=== PATIENT | female | born 1970 | race African-American/Black ===

== ENCOUNTER 2017-01-28 10:56 | Emergency (ER) | payer MEDICAID ==
[~2017-01-28] VITALS: Ht 149.9 cm; Wt 60.0 kg
[~2017-01-28 10:56] MED LIST: naprosyn; vicodin
[2017-01-28] MEDS ORDERED: MORPHINE SULFATE 10 MG/ML CPJ IM ONE ×2 (14:15→17:15)
[2017-01-28] MEDS ORDERED: ONDANSETRON 4MG ODT PO ONE (14:15)
[2017-01-28] MEDS ORDERED: AMLODIPINE 2.5MG TABLET PO ONE (15:15)
[2017-01-28 17:33] VITALS: BP 145/91
== END 2017-01-28 18:00 | disposition home or self-care (01) ==
LOC: ER 10:56
DX: N64.4 Mastodynia (principal); I10 Essential (primary) hypertension; E78.00 Pure hypercholesterolemia, unspecified; Z88.0 Allergy status to penicillin
CPT/HCPCS: 76641; 96372; 99284; J2270; Q0162